=== PATIENT | female | born 1950 | race Caucasian/White ===

== ENCOUNTER → 2021-07-29 | Day surgery (SDC) | payer MEDICARE, OTHER ==
[~2021-07-29] VITALS: Ht 157.5 cm; Wt 64.0 kg
[~2021-07-29] MED LIST: BLOOD PRESSURE PO; COZAAR50 MG PO; ISOSORBIDE MONO60 MG PO; LIPITOR 10MG TA10 MG PO; LOPRESSOR50 MG PO; LOSARTAN-HCTZ1 EAC1 PO; PEPCID AC20 MG PO; PLAVIX75 MG PO; PRAVASTATIN SOD10 MG PO; PROTONIX 40MG T40 MG PO; VITAMIN E100 UNIT PO
[2021-07-29 08:22] LABS: HCT 42.8 % (37.0-47.0); HGB 14.2 g/dl (12.5-16.0); MCH 28.9 pg (25.0-31.0); MCHC 33.2 g/dL (32.0-36.0); MCV 87.2 fL (78.0-100.0); MPV 9.9 fL (6.0-9.5); RBC 4.91 M/uL (4.20-5.40); RDW 13.1 % (11.5-14.0); WBC 5.9 K/uL (4.0-10.5)
[2021-07-29 08:40] LABS: ALBUMIN 4.3 g/dL (3.4-5.0); BILIRUBIN - TOTAL 0.6 mg/dL (0.2-1.0); BUN/CREAT RATIO (CALC) 19.6 RATIO; CREATININE 1.07 mg/dL (0.51-0.95); GLOBULIN (CALCULATION) 3.6 g/dL; POTASSIUM 3.8 mmol/L (3.5-5.1); TOTAL PROTEIN 7.9 g/dL (6.4-8.2)
== END | disposition home or self-care (01) ==
LOC: FAS 07:30
PROVIDERS: Surgery
DX: Z12.11 Encounter for screening for malignant neoplasm of colon (principal); K29.50 Unspecified chronic gastritis without bleeding; K21.00 Gastro-esophageal reflux disease with esophagitis, without bleeding; K44.9 Diaphragmatic hernia without obstruction or gangrene; I10 Essential (primary) hypertension; I25.2 Old myocardial infarction; Z98.61 Coronary angioplasty status; Z79.02 Long term (current) use of antithrombotics/antiplatelets; Z79.82 Long term (current) use of aspirin
CPT/HCPCS: 43239; G0121; 36415; 80053; J2704; J7120